=== PATIENT | female | born 2005 | race Caucasian/White ===

== ENCOUNTER 2025-06-01 23:34 | Emergency (ER) | payer SELFPAY ==
--- OUTSIDE RECORDS SUMMARY | 2025-05-05 04:30 | XMS_ITS ---
Author Organization [facility] Address [address] [place] [address] Care Team Providers Care Lamp Cleaner Name Role Phone LEXI CRUZ Primary Care Provider [phone] ADAIR RODRIGUEZ Unavailable [phone] REASON FOR VISIT lab f/u Social History Sex Assigned At : Social History Observation Description Sex Assigned At Female Encounters Encounter Location Date Provider Diagnosis [facility] [address] [address] 05/05/2025 ADAIR SAPP Plan Of Treatment Next Appt Details Provider Name:EMILE PINTO , 07/01/2025 01:00:00 PM, [address], [address], Provider Name:EMILE PINTO , 07/19/2025 07:30:00 AM, [address], [address], Provider Name:EMILE PINTO , 08/05/2025 10:00:00 AM, [facility] [address], [address], Provider Name:EMILE PINTO , 08/19/2025 10:00:00 AM, [address], [address], Provider Name:EMILE PINTO , 09/02/2025 10:00:00 AM, [address] [address], [place], [address], Progress Notes * Ainsley MCDONALD ODOB:[birth year] (19 yo F)Acc No.[id number]:05/05/2025 Patient: Ainsley Ward Provider: JUDI Price :2005 A ge:19 Y S ex:Female Date:05/05/2025 Address:[address] [place] [address], [phone] Pcp:LEXI CRUZ Structured Data:[place] : No ; Migrant : No; Not UDS Housing Situation : Live with friends/doubling Subjective: * Chief Complaints: * L ab f/u * Electronic signature of JUDI LEE on 06/02/2025 at 12:37 AM EST Sign off status: Pending * Provider: JUDI Price Date: 07/05/2024 Generated for Jaren barton/Kendal/Anastaciaitting on: 08/03/2024 12:37 AM EST
--- OUTSIDE RECORDS SUMMARY | 2025-05-19 03:15 | XMS_ITS ---
Author Organization [facility] Address [address] [facility] [address] [place] [address] Care Team Providers Care Certified Forklift Operator Name Role Phone LEXI CRUZ Primary Care Provider [phone] ADAIR RODRIGUEZ Unavailable [phone] REASON FOR VISIT 1 month Social History Sex Assigned At : Social History Observation Description Sex Assigned At Female Encounters Encounter Location Date Provider Diagnosis [facility] [address] [facility] [address] [place] [address] 05/19/2025 ADAIR SAPP Plan Of Treatment Next Appt Details Provider Name:EMILE PINTO , 07/01/2025 01:00:00 PM, [address], [address], Provider Name:EMILE PINTO , 07/19/2025 07:30:00 AM, [address], [address], Provider Name:EMILE PINTO , 08/05/2025 10:00:00 AM, [facility], [address], Provider Name:EMILE PINTO , 08/19/2025 10:00:00 AM, [address], [address], Provider Name:EMILE PINTO , 09/02/2025 10:00:00 AM, [address] [address], [place], [address], Progress Notes * Ainsley MCDONALD ODOB:[birth year] (19 yo F)Acc No.[id number]:05/19/2025 Patient: Ainsely Ward Provider: JUDI Price :2005 A ge:19 Y S ex:Female Date:05/19/2025 Address:[address] [place] [address], [phone] Pcp:LEXI CRUZ Structured Data:[place] : No ; Migrant : No; Not UDS Housing Situation : Live with friends/doubling Subjective: * Chief Complaints: * 1 month * Electronic signature of JUDI LEE on 06/02/2025 at 12:37 AM EST Sign off status: Pending * Provider: JUDI Price Date: 07/19/2024 Generated for Jaren barton/Kendal/Anastaciaitting on: 08/03/2024 12:37 AM EST
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
--- NOTE | ~2025-06-01 | XR_ITS ---
Examination: XR chest 1V portable Clinical History: UPPER RIGHT SIDE CP Comparison: None Technique: Portable AP Findings: Heart size normal. Lungs clear. No acute bony abnormality. IMPRESSION: 1. No acute cardiopulmonary findings given portable technique. Reviewed, dictated and finalized at location R. [facility]
[2025-06-01 23:34] VITALS: BP 120/60; PULSE 74; RESP 20; TEMP 36.3; O2SAT 98
--- OUTSIDE RECORDS SUMMARY | 2025-06-01 23:38 | XMS_ITS | Clinical Summary ---
Author Organization [facility] Address [address] [place] [address] Phone Care Team Providers Care Legal Practice Manager Name Role Phone None, Pcp Primary Care Provider Unavailabl e Allergies No known active allergies Medications No known medications Encounters Date Type Department Care Team Description 04/30/2025 6:23 PM EST - 04/30/2025 7:58 PM EST Emergency [facility] Emergency Room and Medical [address] [phone] Kerwin De Oliveira MD Purcell, Jennifer U, DO Near syncope (Primary Dx) Discharge Disposition: Discharged to home or self care (routine discharge) 04/30/2025 Travel 04/15/2025 2:33 PM EDT - 04/15/2025 4:45 PM EDT Emergency [facility] Emergency Room and Medical [address] [phone] Lisy Lancaster, Chest pain, unspecified type (Primary Dx); Dizziness; Diarrhea, unspecified type Discharge Disposition: Discharged to home or self care (routine discharge) 04/15/2025 Travel from Last 3 Months Social History Tobacco Use Types Packs/Day Years Used Date Smoking Tobacco: Never Smokeless Tobacco: Never Tobacco Cessation:Counseling Given: Not Answered [place] Domestic Violence Answer Date Rec orded Do you feel threatened or afraid of others close to you? No 04/30/2025 Comments Unknown Sex and Gender Information Value Date Recorded Sex Assigned at Not on file Legal Sex Female 2:31 PM EDT Gender Identity Not on file Sexual Orientation Not on file Last Filed Vital Signs Vital Sign Reading Time Taken Comments Blood Pressure 128/76 04/30/2025 7:45 PM EST Pulse 62 04/30/2025 7:45 PM EST Temperature 36.9 C (98.5 F) 04/30/2025 6:30 PM EST Respiratory Rate 20 04/30/2025 7:45 PM EST Oxygen Saturation 100% 04/30/2025 7:45 PM EST Inhaled Oxygen Concentration - - Weight 95.7 kg (210 lb 15.7 oz) 04/30/2025 6:30 PM EST Height 175.3 cm (5' 9) 04/30/2025 6:30 PM EST Body Mass Index 31.16 04/30/2025 6:30 PM EST Plan of Treatment Health Maintenance Due Date Last Done Comments HIV Screening 2004 Hepatitis C Screening 2004 COVID-19 Vaccine (#1) 2009 Depression Screening 2016 HPV Vaccines (2 - 2-dose series) 09/26/2018 03/28/2018 Chlamydia Screening 2020 Meningococcal B Vaccine (1 of 2 - Standard) 2020 Influenza Vaccine (#1) 2025 05/22/2022, 2017 DTaP,Tdap,and Td Vaccines (8 - Td or Tdap) 08/21/2033 08/21/2023, 01/31/2018, 08/26/2009, Additional history exists RSV women or 60 years and older (1 - 1-dose 75+ series) 2079 Hepatitis B Vaccines Completed 02/12/2005, 2004, 2004 HIB Vaccines Completed 09/25/2005, 01/23, 2004, Additional history exists Pneumococcal Vaccine: Pediatrics (0 to 5 Years) and At-Risk Patients (6 to 49 Years) Aged Out 09/25/2005, 02/12/2005, 2004, Additional history exists No longer eligible based on patient's age to complete this topic Hepatitis A Vaccines Completed 05/08/2006, 09/26/19 IPV Vaccines Completed 08/26/2009, 01/23, 2004, Additional history exists MMR Vaccines Completed 08/26/2009, 09/25/2005 Varicella Vaccines Completed 08/26/2009, 09/25/2005 Diabetes Screening Discontinued 04/30/2025, 04/15/2025 Meningococcal ACWY Aged Out No longer eligible based on patient's age to complete this topic RSV patients under 20 months Aged Out No longer eligible based on patient's age to complete this topic Procedures Procedure Name Priority Date/Time Associated Diagnosis Comments HCG QUALITATIVE, URINE STAT 04/30/2025 7:25 PM EST URINALYSIS WITH CULTURE IF INDICATED STAT 04/30/2025 7:25 PM EST CBC WITH AUTO DIFFERENTIAL STAT 04/30/2025 7:09 PM EST TROPONIN I HIGH SENSITIVITY STAT 04/30/2025 7:09 PM EST MAGNESIUM STAT 04/30/2025 7:09 PM EST COMPREHENSIVE METABOLIC PANEL STAT 04/30/2025 7:09 PM EST CBC WITH DIFFERENTIAL STAT 04/30/2025 7:09 PM EST ECG 12-LEAD STAT 04/30/2025 6:[address] CHEST PULMONARY EMBOLISM W CONTRAST STAT 04/15/2025 3:44 PM EDT URINALYSIS WITH CULTURE IF INDICATED STAT 04/15/2025 3:33 PM EDT LIPASE STAT Add-on 04/15/2025 2:53 PM EDT D-DIMER, QUANTITATIVE STAT 04/15/2025 2:53 PM EDT MAGNESIUM STAT 04/15/2025 2:53 PM EDT HCG, SERUM, QUALITATIVE STAT 04/15/2025 2:53 PM EDT CBC STAT 04/15/2025 2:53 PM EDT TROPONIN I HIGH SENSITIVITY STAT 04/15/2025 2:53 PM EDT COMPREHENSIVE METABOLIC PANEL STAT 04/15/2025 2:53 PM EDT ECG 12-LEAD STAT 04/15/2025 2:43 PM EDT from Last 3 Months Results * Urinalysis with Culture if Indicated (04/30/2025 7:25 PM EST) Only the most recent of2 resultswithin the time period is included. Urine, Color Yellow LAB URINALYSIS - AUTOMATED METHOD 04/30/2025 7:30 PM EST [facility] Urine, Appearance Clear Clear, Slightly Cloudy LAB URINALYSIS - AUTOMATED METHOD 04/30/2025 7:30 PM EST [facility] Specific [place], Urine 1.008 1.002 - 1.035 LAB URINALYSIS - AUTOMATED METHOD 04/30/2025 7:30 PM EST [facility] Urine, Leukocyte Esterase Negative Negative /uL LAB URINALYSIS - AUTOMATED METHOD 04/30/2025 7:30 PM EST [facility] Urine Nitrite Negative Negative LAB URINALYSIS - AUTOMATED METHOD 04/30/2025 7:30 PM EST [facility] pH, Urine 6.5 4.5 - 8.0 LAB URINALYSIS - AUTOMATED METHOD 04/30/2025 7:30 PM EST [facility] Protein, Urine Dipstick Negative Negative - 30 mg/dL LAB URINALYSIS - AUTOMATED METHOD 04/30/2025 7:30 PM EST [facility] Urine, Glucose Negative Negative mg/dL LAB URINALYSIS - AUTOMATED METHOD 04/30/2025 7:30 PM EST [facility] Urine, Ketones Negative Negative mg/dL LAB URINALYSIS - AUTOMATED METHOD 04/30/2025 7:30 PM EST [facility] Urine, Urobilinogen Normal Normal mg/dL LAB URINALYSIS - AUTOMATED METHOD 04/30/2025 7:30 PM EST [facility] Urine, Bilirubin Negative Negative LAB URINALYSIS - AUTOMATED METHOD 04/30/2025 7:30 PM EST [facility] Urine, Blood Negative Negative LAB URINALYSIS - AUTOMATED METHOD 04/30/2025 7:30 PM EST [facility] UA sent for Culture? Culture not indicated LAB URINALYSIS - AUTOMATED METHOD 04/30/2025 7:30 PM EST [facility] Urine Urine specimen obtained by clean catch procedure / Unknown Non-blood Collection / Unknown 04/30/2025 7:25 PM EST 04/30/2025 7:26 PM EST [facility] ORDER[facility]LES Final Re sult Performing Organization Address [facility]/ZIP Co de Phone Number [facility] [address] [place] [address], * urine (04/30/2025 7:25 PM EST) Pathologist [facility] Qualitative, Urine Negative Negative 04/30/2025 7:36 PM EST [facility] Comment:If urine specimen is too dilute, it may not contain customer service representative teller levels of HCG. A first morning specimen should be obtained to minimize the possibility of a false negative result. Urine Urine specimen obtained by clean catch procedure / Unknown Non-blood Collection / Unknown 04/30/2025 7:25 PM EST 04/30/2025 7:26 PM EST Narrative [facility] - 04/30/2025 7:36 PM EST Urine Beta hCG Qual Reference: Negative: Less than 20 mIU/mL. Positive: Greater than or equal to 20 mIU/mL. [facility] URINE ORDERABLES Final Re sult Performing Organization Address City/[facility]/ZIP Co de Phone Number [facility] [address] [place] [address], * Troponin HS (04/30/2025 7:09 PM EST) Only the most recent of2 resultswithin the time period is included. Pathologist [facility] Troponin HS <4 <14 ng/L LAB CHEMISTRY METHOD 04/30/2025 7:39 PM EST [facility] Comment: Very low troponin value 2hr Troponin retest will automatically reflex. Evaluate 2hr Troponin result for delta of >= 8ng/L. Reportable range has been updated. Blood Venous blood specimen / Unknown Venipuncture / Unknown 04/30/2025 7:09 PM EST 04/30/2025 7:16 PM EST us Tish Vega BUDGET DIRECTOR LAB BLOOD ORDERABLES Final Re sult [facility] [address] [facility] [address] [place] [address], * (ABNORMAL) CBC auto differential (04/30/2025 7:09 PM EST) WBC 9.1 4.4 - 10.5 x10(3)/uL LAB HEMATOLOGY METHOD 04/30/2025 7:19 PM EST [facility] RBC 3.74(L) 3.75 - 5.00 x10(6)/uL LAB HEMATOLOGY METHOD 04/30/2025 7:19 PM EST [facility] Hgb 11.0(L) 11.4 - 14.7 g/dL LAB HEMATOLOGY METHOD 04/30/2025 7:19 PM EST [facility] HCT 33.1(L) 34.3 - 45.5 % LAB HEMATOLOGY METHOD 04/30/2025 7:19 PM EST [facility] MCV 88.5 80.5 - 99.8 fL LAB HEMATOLOGY METHOD 04/30/2025 7:19 PM EST [facility] MCH 29.4 26.8 - 33.0 pg LAB HEMATOLOGY METHOD 04/30/2025 7:19 PM EST [facility] MCHC 33.2 31.0 - 35.4 g/dL LAB HEMATOLOGY METHOD 04/30/2025 7:19 PM EST [facility] RDW 12.2 11.7 - 14.7 % LAB HEMATOLOGY METHOD 04/30/2025 7:19 PM EST [facility] Platelet 282 139 - 361 x10(3)/uL LAB HEMATOLOGY METHOD 04/30/2025 7:19 PM EST [facility] MPV 9.2 8.9 - 12.7 fL LAB HEMATOLOGY METHOD 04/30/2025 7:19 PM EST [facility] Immature Granulocyte % 0.2 % LAB HEMATOLOGY METHOD 04/30/2025 7:19 PM EST [facility] Comment:The Immature Granulo cyte (IG) parameter includes promyelocytes, myleocytes, and metamyolecytes. It does not include band forms. Preliminary studies have indicated IG % and/or Absolute show promise as an early screen for infection. Neutrophil % 64.9 % LAB HEMATOLOGY METHOD 04/30/2025 7:19 PM EST [facility] Lymphocyte % 27.1 % LAB HEMATOLOGY METHOD 04/30/2025 7:19 PM EST [facility] Monocyte % 6.2 % LAB HEMATOLOGY METHOD 04/30/2025 7:19 PM EST [facility] Eosinophil % 1.2 % LAB HEMATOLOGY METHOD 04/30/2025 7:19 PM EST [facility] Basophil % 0.4 % LAB HEMATOLOGY METHOD 04/30/2025 7:19 PM EST [facility] Nucleated RBC % 0.0 0.0 - 0.4 % LAB HEMATOLOGY METHOD 04/30/2025 7:19 PM EST [facility] Absolute Immature Granulocyte Count 0.02 <=0.06 x10(3)/ul LAB HEMATOLOGY METHOD 04/30/2025 7:19 PM EST [facility] Absolute Neutrophil Count 5.9 1.5 - 7.5 x10(3)/ul LAB HEMATOLOGY METHOD 04/30/2025 7:19 PM EST [facility] Absolute Lymphocyte Count 2.5 1.0 - 4.8 x10(3)/ul LAB HEMATOLOGY METHOD 04/30/2025 7:19 PM EST [facility] Absolute Monocyte Count 0.6 0.0 - 0.8 x10(3)/ul LAB HEMATOLOGY METHOD 04/30/2025 7:19 PM EST [facility] Absolute Eosinophil Count 0.1 0.0 - 0.5 x10(3)/ul LAB HEMATOLOGY METHOD 04/30/2025 7:19 PM EST [facility] Absolute Basophil Count 0.0 0.0 - 0.2 x10(3)/ul LAB HEMATOLOGY METHOD 04/30/2025 7:19 PM EST [facility] Absolute Nucleated RBC Count 0.00 0.00 - 0.03 x10(3)/ul LAB HEMATOLOGY METHOD 04/30/2025 7:19 PM EST [facility] Blood Venous blood specimen / Unknown Venipuncture / Unknown 04/30/2025 7:09 PM EST 04/30/2025 7:16 PM EST us Tish Stahls BUDGET DIRECTOR LAB BLOOD ORDERABLES Final Re sult Performing Organization Address [facility]/ZIP Co de Phone Number [facility] [address] [place] [address], * Magnesium (04/30/2025 7:09 PM EST) Only the most recent of2 resultswithin the time period is included. Magnesium Level 2.1 1.6 - 2.6 mg/dL LAB CHEMISTRY METHOD 04/30/2025 7:36 PM EST [facility] Blood Venous blood specimen / Unknown Venipuncture / Unknown 04/30/2025 7:09 PM EST 04/30/2025 7:16 PM EST [facility] BUDGET DIRECTOR LAB BLOOD ORDERABLES Final Re sult Performing Organization Address [facility] Co de Phone Number [facility] [address] [place] [address], * (ABNORMAL) Comprehensive metabolic panel (04/30/2025 7:09 PM EST) Only the most recent of2 resultswithin the time period is included. Sodium 140 136 - 145 mmol/L LAB CHEMISTRY METHOD 04/30/2025 7:36 PM EST [facility] Potassium 4.2 3.5 - 5.1 mmol/L LAB CHEMISTRY METHOD 04/30/2025 7:36 PM EST [facility] Chloride 106 98 - 107 mmol/L LAB CHEMISTRY METHOD 04/30/2025 7:36 PM EST [facility] CO2 26 22 - 31 mmol/L LAB CHEMISTRY METHOD 04/30/2025 7:36 PM EST [facility] Glucose 96 60 - 105 mg/dL LAB CHEMISTRY METHOD 04/30/2025 7:36 PM EST [facility] BUN 14 7 - 20 mg/dL LAB CHEMISTRY METHOD 04/30/2025 7:36 PM EST [facility] Creatinine 0.64 0.60 - 1.10 mg/dL LAB CHEMISTRY METHOD 04/30/2025 7:36 PM EST [facility] BUN/Creatinine Ratio 21.9(H) 7.3 - 21.7 LAB CHEMISTRY METHOD 04/30/2025 7:36 PM EST [facility] Calcium 9.5 8.4 - 10.2 mg/dL LAB CHEMISTRY METHOD 04/30/2025 7:36 PM EST [facility] Total Protein 7.0 6.4 - 8.3 g/dL LAB CHEMISTRY METHOD 04/30/2025 7:36 PM EST [facility] Comment:Reference range has been updated. Albumin Level 4.0 3.1 - 4.5 g/dL LAB CHEMISTRY METHOD 04/30/2025 7:36 PM EST [facility] Comment:Reference range has been updated. Bilirubin Total 0.2(L) 0.3 - 1.2 mg/dL LAB CHEMISTRY METHOD 04/30/2025 7:36 PM EST [facility] Comment:Reference range has been updated. ALT 11 6 - 55 U/L LAB CHEMISTRY METHOD 04/30/2025 7:36 PM EST [facility] Comment:Reference range has been updated. AST 21 6 - 34 U/L LAB CHEMISTRY METHOD 04/30/2025 7:36 PM EST [facility] Comment:Reference range has been updated. ALP 89 40 - 150 U/L LAB CHEMISTRY METHOD 04/30/2025 7:36 PM EST [facility] Osmolality Calc 289 280 - 300 mOs/kg LAB CHEMISTRY METHOD 04/30/2025 7:36 PM EST [facility] Anion Gap 8 2 - 12 mmol/L LAB CHEMISTRY METHOD 04/30/2025 7:36 PM EST [facility] eGFR 130 mL/min LAB CHEMISTRY METHOD 04/30/2025 7:36 PM EST [facility] Comment: Calculation based on the Chronic Kidney Disease Epidemiology Collaboration (CKD- EPI) equation refit without adjustment for race. GFR ranges: A GFR of 60 higher is in the normal range. A GFR below 60 may mean kidney disease. A GFR of 15 or lower may mean kidney failure. Below shows the 5 stages of CKD with ICD-10 code and GFR for each stage: N18.1 Stage 1: With normal or high GFR (GFR > 90 mL/min) N18.2 Stage 2: Mild CKD (GFR = 60-89 mL/min) N18.3 Stage 3A: Moderate CKD (GFR = 45-59 mL/min) N18.3 Stage 3B: Moderate CKD (GFR = 30-44 mL/min) N18.4 Stage 4: Severe CKD (GFR = 15-29 mL/min) N18.5 Stage 5: End Stage CKD (GFR < 15 mL/min) Blood Venous blood specimen / Unknown Venipuncture / Unknown 04/30/2025 7:09 PM EST 04/30/2025 7:16 PM EST us Tish Vega BUDGET DIRECTOR LAB BLOOD ORDERABLES Final Re sult [facility] [address] [place] [address], * ECG 12 lead (04/30/2025 6:25 PM EST) Only the most recent of2 resultswithin the time period is included. Abnormal Borderline Normal [facility] Ventricular Rate 66 BPM [facility] Atrial Rate 66 BPM [facility] ND Interval 158 ms [facility] QRSD Interval 80 ms [facility] QT Interval 418 ms [facility] QTC Calculation(Baz ett) 438 ms [facility] P [place] 35 degrees [facility] R [place] 40 degrees [facility] T [place] 17 degrees [facility] 04/30/2025 6:25 PM EST 05/01/2025 9:39 AM EST Narrative [facility] - 05/01/2025 9:39 AM EST Sinus rhythm with marked sinus arrhythmia Otherwise normal ECG When compared with ECG of 15-Apr-2025 14:43, No significant change was found Procedure Note Juan Alfred MD - 05/01/2025 Sinus rhythm with marked sinus arrhythmia Otherwise normal ECG When compared with ECG of 15-Apr-2025 14:43, No significant change was found Kerwin De Oliveira MD ECG ORDERABLES Final Result [facility] * CT Chest Pulmonary Embolism W Contrast (04/15/2025 3:44 PM EDT) Anatomical Region Laterality Modality Chest N/A Computed Tomogra phy Impressions 04/15/2025 4:[address] Angiogram of chest. Dictated on: 04/15/2025 4:21 PM Signed by: Bryon Perez MD 04/15/2025 4:29 PM Narrative 04/15/2025 4:29 PM EDT PROCEDURE: CT CHEST PULMONARY EMBOLISM W CONTRAST INDICATION: PE suspected, low/intermediate prob, positive D-dimer. COMPARISON: None. TECHNIQUE: CT angiogram of the chest with IV contrast following the pulmonary embolism protocol. Multiplanar and three-dimensional reformatted images were reviewed at the workstation at the time of interpretation. Three-dimensional post processing was performed. Dose lowering technique(s) such as automated exposure control, iterative reconstruction, mA and/or KV adjustment for patient's size was utilized for this examination. CONTRAST: 100mL Omnipaque 300 IV FINDINGS: Lower Neck: Unremarkable. Lungs/Pleura: No effusion, pneumothorax or airspace consolidation. No suspicious pulmonary nodule. Vascular: No pulmonary embolism. No thoracic aortic aneurysm or dissection. Mediastinum: No cardiomegaly, pericardial effusion or pericardial thickening. The trachea and esophagus are unremarkable. Lymph Nodes: No pathologic adenopathy. Upper Abdomen: No acute process in the upper abdomen. Chest Wall/Musculoskeletal: No suspicious osseous lesions. Other: None. Procedure Note Bryon Perez MD - 04/15/2025 PROCEDURE: CT CHEST PULMONARY EMBOLISM W CONTRAST INDICATION: PE suspected, low/intermediate prob, positive D-dimer. COMPARISON: None. TECHNIQUE: CT angiogram of the chest with IV contrast following thepulmonary embolism protocol. Multiplanar and three-dimensional reformattedimages were reviewed at the workstation at the time of interpretation.Three-dimensional post processing was performed. Dose loweringtechnique(s) such as automated exposure control, iterative reconstruction,mA and/or KV adjustment for patient's size was utilized for thisexamination. CONTRAST: 100mL Omnipaque 300 IV FINDINGS: Lower Neck: Unremarkable. Lungs/Pleura: No effusion, pneumothorax or airspace consolidation. Nosuspicious pulmonary nodule. Vascular: No pulmonary embolism. No thoracic aortic aneurysm ordissection. Mediastinum: No cardiomegaly, pericardial effusion or pericardialthickening. The trachea and esophagus are unremarkable. Lymph Nodes: No pathologic adenopathy. Upper Abdomen: No acute process in the upper abdomen. Chest Wall/Musculoskeletal: No suspicious osseous lesions. Other: None. IMPRESSION: Unremarkable CT Angiogram of chest. Dictated on: 04/15/2025 4:21 PM Signed by: Bryon Perez MD 04/15/2025 4:29 PM Lisy Lancaster DO IMG CT PROCEDURES Fin al Result * (ABNORMAL) D-dimer, quantitative (04/15/2025 2:53 PM EDT) D-Dimer, Quant (FEU) 534(H) <=500 ng/mL FEU LAB COAGULATION METHOD 04/15/2025 3:09 PM EDT [facility] Comment: This test is a Latex Enhanced Immunoassay which is FDA approved for use in conjunction with a Clinical Pretest Probability (PTP) Assessment model to exclude venous thromboembolism (VTE) in outpatients suspected of deep venous thrombosis (DVT) and pulmonary embolism (PE). The cutoff value for this exclusion is 500 ng/mL FEU. For patients greater than 50 y.o., in combination with a low clinical probability assessment, an age-adjusted D-Dimer cutoff (patient's age x 10) improves the diagnostic accuracy of D-dimer as an exclusion screen for DVT and PE. Blood Venous blood specimen / Unknown Venipuncture / Unknown 04/15/2025 2:53 PM EDT 04/15/2025 2:56 PM EDT Lisy Lancaster DO LAB BLOOD ORDERABLES Final Result [facility] [address] [facility] [address] [place] [id number], * CBC (04/15/2025 2:53 PM EDT) WBC 9.4 4.4 - 10.5 x10(3)/uL LAB HEMATOLOGY METHOD 04/15/2025 2:59 PM EDT [facility] RBC 4.13 3.75 - 5.00 x10(6)/uL LAB HEMATOLOGY METHOD 04/15/2025 2:59 PM EDT [facility] Hgb 12.2 11.4 - 14.7 g/dL LAB HEMATOLOGY METHOD 04/15/2025 2:59 PM EDT [facility] HCT 36.1 34.3 - 45.5 % LAB HEMATOLOGY METHOD 04/15/2025 2:59 PM EDT [facility] MCV 87.4 80.5 - 99.8 fL LAB HEMATOLOGY METHOD 04/15/2025 2:59 PM EDT [facility] MCH 29.5 26.8 - 33.0 pg LAB HEMATOLOGY METHOD 04/15/2025 2:59 PM EDT [facility] MCHC 33.8 31.0 - 35.4 g/dL LAB HEMATOLOGY METHOD 04/15/2025 2:59 PM EDT [facility] RDW 12.4 11.7 - 14.7 % LAB HEMATOLOGY METHOD 04/15/2025 2:59 PM EDT [facility] Platelet 290 139 - 361 x10(3)/uL LAB HEMATOLOGY METHOD 04/15/2025 2:59 PM EDT [facility] MPV 10.5 8.9 - 12.7 fL LAB HEMATOLOGY METHOD 04/15/2025 2:59 PM EDT [facility] Blood Venous blood specimen / Unknown Venipuncture / Unknown 04/15/2025 2:53 PM EDT 04/15/2025 2:56 PM EDT us Lisy Lancaster DO LAB BLOOD ORDERABLES Final Result [facility] [address] [place] [id number], * hCG, serum, qualitative (04/15/2025 2:53 PM EDT) [facility] Qualitative, Serum Negative Negative 04/15/2025 3:09 PM EDT [facility] Blood Venous blood specimen / Unknown Venipuncture / Unknown 04/15/2025 2:53 PM EDT 04/15/2025 2:56 PM EDT Narrative [facility] - 04/15/2025 3:09 PM EDT Serum Beta hCG Qual Reference: Negative: Less than 10 mIU/ml. Positive: Greater than or equal to 10 mIU/ml. us Lisy Lancaster DO LAB BLOOD ORDERABLES Final Result Performing Organization Address City/[facility] Co de Phone Number [facility] [address] [facility] [address] [place] [address], * Lipase (04/15/2025 2:53 PM EDT) Lipase Level 26 8 - 78 U/L LAB CHEMISTRY METHOD 04/15/2025 3:15 PM EDT [facility] Comment: Note: Patients who have taken toxic doses of acetaminophen may have falsely low levels of this analyte. Blood Venous blood specimen / Unknown Venipuncture / Unknown 04/15/2025 2:53 PM EDT 04/15/2025 2:56 PM EDT Lisy Hernandez DaronPatria DO LAB BLOOD ORDERABLES Final Result Performing Organization Address [facility] Co de Phone Number [facility] [address] [facility] [address] [place] [address], from Last 3 Months Care Teams Legal Practice Manager Relationship Specialty Start Date End Date None, Pcp PCP - General 04/15/25
[2025-06-02 00:10] LABS: Hematocrit 31.4 % (35.0-49.0); Hemoglobin 10.3 g/dL (12.0-15.0); Immature Granulocyte Percent A 0.2 % (0.0-0.0); Lymphocytes Absolute Auto 3.43 K/mm3 (1.10-4.50); Mean Corpuscular HGB Conc 32.8 g/dL (32-36); Mean Corpuscular Hemoglobin 29.5 pg (27.0-31.0); Mean Corpuscular Volume 90.0 fL (78.0-102.0); Nucleated Red Blood Cells Absolute Auto 0.00 K/mm3 (0.00-0.00); Nucleated Red Blood Cells Perc 0.0 % (0-0.0); Platelet Count Result 256 K/mm3 (150-420); Red Blood Count 3.49 M/mm3 (4.20-5.40); White Blood Count 10.4 K/mm3 (4.8-10.8)
--- NOTE | 2025-06-02 00:30 | PC.NURSE ---
SENT PATIENT TO THE BATHROOM FOR URINE SAMPLE.
[2025-06-02] MEDS: CYCLOBENZAPRINE HCL 10 MG TABLET PO (00:34)
[2025-06-02 00:35] LABS: Alanine Aminotransferase 17 U/L (6-35); Albumin Level 4.2 g/dL (3.5-5.1); Alkaline Phosphatase 70 U/L (38-126); Anion Gap 10 mmol/L (4-12); Aspartate Amino Transferase 25 U/L (14-36); Bilirubin,Total 0.1 mg/dL (0.2-1.3); Blood Urea Nitrogen 17 mg/dL (7-17); Calcium 8.9 mg/dL (8.4-10.2); Carbon Dioxide 24 mmol/L (22-30); Chloride 107 mmol/L (98-107); Estimated CRCL calculation 117 ml/min; Estimated Glomerular Filt Rate > 60; Glucose 116 mg/dL (65-110); Osmolality Calculated 294 mOsm/kg (285-295); Potassium 3.5 mmol/L (3.4-5.0); Sodium 141 mmol/L (137-145); Total Protein 6.9 g/dL (6.3-8.2)
--- NOTE | 2025-06-02 00:41 | ED_ITS ---
HPI - General Adult General Chief complaint: Unspecified Stated complaint: RIGHT SIDE CHEST PAIN History of Present Illness HPI narrative: 19-year-old white female [place] ago, and developed a right upper chest pain this evening, pleuritic in nature, worse when she takes deep breath, coughs, became concerned of possible blood clot and came in for evaluation. No diaphoresis, nausea or vomiting, near-syncope or syncope. Discomfort is still there since about 6:00 a.m. She denies any recent sinus drainage, sore throat, cough, shortness of breath, sore throat, denies abdominal pain, diarrhea or constipation, dysuria urgency or frequency. Related Data Allergies Allergy/AdvReac Type Severity Reaction Status Date / Time No Known Allergies Allergy Verified 06/01/25 23:44 Review of Systems 2 Review of Systems: ROS is negative except as in HPI Exam 2 Narrative: pleasant, well-appearing, well oriented, obese, no acute distress Const: General: cooperative, healthy appearing, comfortable, no acute distress, well developed, alert, awake and Physically active O rientation/consciousness: patient oriented x3 HENMT: Head: normal to inspection, normocephalic and atraumatic Ears: h earing grossly normal bilaterally and external ears normal Face/Nose/Sinus: N ormal external nose present, Normal nares present, Normal nasal mucous membranes and turbinates present and normal facial exam Face and sinus: normal facial exam Mouth: Yes Normal oral and palatal mucosa present, Yes lip normal, Yes tongue normal, Yes oropharynx normal and Yes moist mucous membranes Teeth and gingiva: dentition normal Throat: posterior oropharynx normal and tonsils normal ( erythematous) Eyes: General: appearance normal, both eyes and all related structures A lignment and Position: alignment normal and position normal Periorbital: p eriorbital findings normal Eyelids: eyelids normal Conjunctivae: c onjunctivae normal Sclera: sclerae normal Cornea: corneas normal P upils: Equal, round and reactive pupils present EOM: EOMs intact bilaterally Neck: Neck: normal visual inspection, full ROM and no lymphadenopathy Chest: Chest palpation & inspection: normal inspection of the chest and tenderness Other: Patient has marked tenderness on palpation of her right upper chest wall beginning at the right upper costo a sternal margin, or extending laterally inferior to the clavicle and superior to the breast., no erythema, no rash, no swelling are warmth, no crepitance, no point tenderness of the ribs Resp: Effort & Inspection: normal respiratory effort, able to speak in complete sentences, no audible wheezes, no respiratory distress and no use of accessory muscles Auscultation: clear to auscultation bilaterally Cardio: Jugular venous distension: no JVD Rate: regular rate Rhythm: r egular rhythm GI: Inspection: normal to inspection GI Palp: No abdominal tenderness, No Tenderness to palpation present (GI), No Guarding due to palpation present (GI), No No hepatosplenomegaly present, No Palpable mass present and No Rebound tenderness present Skin: General skin exam: normal color, no rashes or lesions noted, elasticity normal and turgor normal Neuro: General: patient oriented x3, gait normal, tone normal and moves all extremities Cranial nerves: Yes CN's II-XII intact bilaterally, Yes Equal, round and reactive pupils present and Yes Bilaterally intact EOM present S peech: normal speech Motor exam (neuro): 5/5 motor strength present throughout and Normal motor muscle tone present throughout Sensory Exam: n ormal sensation Extrem: General: normal to inspection, normal exam except as noted and no pedal edema Psych: Appearance: grossly normal and well kempt Mental Status: mental status grossly normal Speech and movement: Normal speech and movement present Affect: normal affect Attitude: cooperative Thought process: Normal thought process present Course Course Emergency Course: Differential diagnosis includes musculoskeletal pain, costochondritis, considering the recent plane travel, PE, ACS (very unlikely) pneumonia, pneumo Chest x-ray is unremarkable EKG is D-dimer is negative 1st troponin is normal H&H is 10.3 and 31.4, [place] [id number] CMP is normal test is pending CBC is normal, test is normal, patient's heart score is 1, explained to her that she has chest wall pain, stable for discharge, discharged on naproxen and Flexeril with follow-up with her PCP\ Medical decision making complexity and risk was moderate Vital Signs Vital signs: Vital Signs Temperature 36.3 C L 06/01/25 23:34 Pulse Rate 74 06/01/25 23:34 Respiratory Rate 20 06/01/25 23:34 Blood Pressure 120/60 06/01/25 23:34 Pulse Oximetry 98 06/01/25 23:34 Oxygen Delivery Room Air 06/01/25 23:34 Temperature 36.3 C L 06/01/25 23:34 Pulse Rate 70 06/02/25 01:13 Respiratory Rate 18 06/02/25 01:13 Blood Pressure 126/70 06/02/25 01:13 Pulse Oximetry 100 06/02/25 01:13 Oxygen Delivery Room Air 06/02/25 01:13 MDM Differential Diagnosis Differential Diagnosis: Differential diagnosis in ED course Lab Data 06/02/25 00:05 06/02/25 00:05 Labs: Lab Results 06/02/25 06/02/25 Range/Units 00:05 00:36 WBC 10.4 (4.8-10.8) K/mm3 RBC 3.49 L (4.20-5.40) M/mm3 Hgb 10.3 L (12.0-15.0) g/dL Hct 31.4 L (35.0-49.0) % MCV 90.0 (78.0-102.0) fL MCH 29.5 (27.0-31.0) pg MCHC 32.8 (32-36) g/dL RDW 12.4 (11.6-14.4) % Plt Count 256 (150-420) K/mm3 MPV 8.9 L (9.2-11.8) fl Immature Gran % (Auto) 0.2 H (0.0-0.0) % Neut % (Auto) 58.2 (50.0-70.0) % Lymph % (Auto) 32.9 (18.0-42.0) % Morton % (Auto) 6.9 (2.0-11.0) % Eos % (Auto) 1.4 (1.0-6.0) % Baso % (Auto) 0.4 (0.0-1.0) % Lymph # (Auto) 3.43 (1.10-4.50) K/mm3 Morton # (Auto) 0.72 (0.10-0.90) K/mm3 Eos # (Auto) 0.15 (0.02-0.50) K/mm3 Baso # (Auto) 0.04 (0.00-0.10) K/mm3 Abs Immat Gran (auto) 0.02 H (0.00-0.00) K/mm3 Absolute Neuts (auto) 6.07 (1.70-7.20) K/mm3 Absolute Nucleated RBC 0.00 (0.00-0.00) K/mm3 Nucleated RBC % 0.0 (0-0.0) % D-Dimer 0.42 (0.19-0.50) mg/L Sodium 141 (137-145) mmol/L Potassium 3.5 (3.4-5.0) mmol/L Chloride 107 (98-107) mmol/L Carbon Dioxide 24 (22-30) mmol/L Anion Gap 10 (4-12) mmol/L BUN 17 (7-17) mg/dL Creatinine 0.83 (0.7-1.0) mg/dL Estim Creat Clear Calc 117 ml/min Estimated GFR > 60 (59 - ) Glucose 116 H (65-110) mg/dL Calculated Osmolality 294 (285-295) mOsm/kg Calcium 8.9 (8.4-10.2) mg/dL Total Bilirubin 0.1 L (0.2-1.3) mg/dL AST 25 (14-36) U/L ALT 17 (6-35) U/L Alkaline Phosphatase 70 (38-126) U/L Troponin I < 0.012 (0.000-0.034) ng/mL Total Protein 6.9 (6.3-8.2) g/dL Albumin 4.2 (3.5-5.1) g/dL Urine Color Yellow (Yellow) Urine Appearance Clear (Clear) Urine pH 6.0 (5.0-8.0) Ur Specific [place] 1.025 H (1.010-1.020) Urine Protein Negative (Negative) Urine Glucose (UA) Negative (Negative) Urine Ketones Negative (Negative) Ur Blood (Man) Negative (Negative) Urine Nitrate Negative (Negative) Urine Bilirubin Negative (Negative) Urine Urobilinogen 0.2 (0.2-1.0) mg/dL Leukocyte Esterase Rfl Negative (Negative) BORIS/UL Urine Test Negative Imaging Data Radiologist's impression: ITS Impressions Chest X-Ray 06/02/25 06:42 IMPRESSION: 1. No acute cardiopulmonary findings given portable technique. Discharge Plan Discharge Clinical Impression: Musculoskeletal chest pain Patient Disposition: Home Condition: Stable Instructions: Chest Wall Pain (ED) Additional Instructions: Light activity When you fly back the reported make sure you get up every 30-45 minutes and walk around the plane Return to the emerged department if worsened Follow-up with [facility] Patient Language: Albanian Prescriptions: New naproxen 500 mg tablet 500 mg PO BID PRN (Reason: pain) Qty: 60 0RF cyclobenzaprine 10 mg tablet 10 mg PO TID PRN (Reason: muscle spasm) Qty: 30 0RF Follow-up/Referrals: Ar Martin MD [Physician, Internal Medicine] Time of Disposition: 01:06
[2025-06-02 00:43] LABS: Add Urine Microscopic? NO; Appearance Urine Clear (Clear); Glucose Urine UA Negative (Negative); Leukocyte Esterase Ur Negative LEU/UL (Negative); Nitrate Urine Negative (Negative); Specific Grav Ur 1.025 (1.010-1.020)
[2025-06-02 00:46] LABS: Pregnancy On Board Control Positive
[2025-06-02 00:46] LABS: Troponin I < 0.012 ng/mL (0.000-0.034)
--- NOTE | 2025-06-02 00:46 | ECG_ITS ---
Test Date: 2025-06-02 00:50:11 Measurements Intervals [place] Rate: 74 P: 35 AR: 148 QRS: 38 QRSD: 88 T: 14 QT: 393 QTc: 438 Interpretive Statements SINUS RHYTHM WITH SINUS ARRHYTHMIA NONSPECIFIC T-WAVE ABNORMALITY- ANTERIOR LEADS BORDERLINE ECG No previous ECG available for comparison Electronically Signed On 06-02-2025 06:17:56 [employer] by Raymundo Bran D.O.
--- NOTE | 2025-06-02 00:53 | PC.NURSE ---
PATIENT IS RESTING QUIETLY ON STRETCHER IN ROOM. FRIEND AT HER SIDE. OFFERED BLANKET. DOES NOT WANT ONE AT THIS TIME. CALL L[facility] IN [facility]
[2025-06-02 01:13] VITALS: BP 126/70; PULSE 70; RESP 18; O2SAT 100
== END 2025-06-02 01:13 | disposition home or self-care (01) ==
PROVIDERS: Emergency Provider Emergency Medicine
DX: R07.89 Other chest pain (principal)
CPT/HCPCS: 36415; 71045; 80053; 81003; 81025; 84484; 85025; 85380; 93005; 99284; A9270